=== PATIENT | male | born 1970 | race Caucasian/White ===

== ENCOUNTER 2020-12-27 10:12 | Emergency (ER) | payer OTHER ==
[2020-12-27 11:42] LABS: RED BLOOD COUNT 5.55 M/UL (4.20-5.50); WHITE BLOOD COUNT 5.5 K/UL (4.5-11.0)
[2020-12-27 11:55] LABS: BUN/CREATININE RATIO 11 (0-10)
== END 2020-12-27 13:28 | disposition home or self-care (01) ==
LOC: ER1 10:12
PROVIDERS: Emergency Medicine
DX: R20.2 Paresthesia of skin (principal); R19.7 Diarrhea, unspecified
CPT/HCPCS: 70450; 80053; 83690; 85025; 93005; 99284; Q9967

== ENCOUNTER 2021-03-07 10:45 | Emergency (ER) | payer OTHER ==
[2021-03-07 11:45] LABS: HEMOGLOBIN 17.8 gm/dl (14.0-17.5); RED BLOOD COUNT 5.49 M/UL (4.20-5.50); WHITE BLOOD COUNT 4.4 K/UL (4.5-11.0)
[2021-03-07 12:05] LABS: BUN/CREATININE RATIO 13 (0-10)
== END 2021-03-07 14:34 | disposition home or self-care (01) ==
LOC: ER1 10:45
PROVIDERS: Emergency Medicine
DX: R42 Dizziness and giddiness (principal); F17.200 Nicotine dependence, unspecified, uncomplicated
CPT/HCPCS: 70450; 71045; 80053; 81001; 82550; 82553; 83605; 83690; 84484; 85025; 85610; 85730; 93005; 99284; Q9967

== ENCOUNTER 2022-01-04 12:27 | Emergency (ER) | payer OTHER ==
[~2022-01-04 12:27] MED LIST: ASPIRIN EC81 MG PO; TYLENOL EXTRA500 MG PO
[2022-01-04 13:33] LABS: HEMOGLOBIN 17.5 gm/dl (14.0-17.5); RED BLOOD COUNT 5.44 M/UL (4.20-5.50); WHITE BLOOD COUNT 5.7 K/UL (4.5-11.0)
[2022-01-04 13:49] LABS: BUN/CREATININE RATIO 10 (0-10)
== END 2022-01-05 09:19 ==
LOC: ER1 12:27
PROVIDERS: Emergency Medicine
DX: I63.9 Cerebral infarction, unspecified (principal); D69.6 Thrombocytopenia, unspecified; F17.200 Nicotine dependence, unspecified, uncomplicated; Z20.822 Contact with and (suspected) exposure to COVID-19
CPT/HCPCS: 70450; 70496; 70498; 71045; 80053; 82550; 82553; 84484; 85025; 85610; 85730; 93005; 99285; Q9967; U0002